=== PATIENT | female | born 1980 | race Caucasian/White ===

== ENCOUNTER 2025-09-04 09:56 | Day surgery (SDC) | payer BC, SELFPAY ==
[2025-09-04 10:20] VITALS: BMI 30.7
[2025-09-04 10:46] VITALS: BP 130/87; PULSE 96; RESP 20; O2SAT 98
--- NOTE | 2025-09-04 15:20 | [facility].PROCNOTE ---
[facility] Procedure Note Date: 09/04/25 Time: 09:00 Procedure Note:: Procedure: Upright tilt table test Requiring physician: Radha Acuna Indication: Dizziness, near syncope Pretest vital signs: Blood pressure 117/80, heart rate 77, 99% on room air Procedure summary: Patient was prepared per protocol. She was then tilted into the upright position at 70 degrees for a total of 30 minutes. Minimum heart rate noted was 73 bpm, maximum heart rate wa 95 bpm. Oxygen saturation ranged from 97% to 100%. Systolic blood pressure ranged from 112-126. EKG rhythm strips showed sinus rhythm. Patient had symptoms of finger numbness, burning and pain on left shoulder, right knee and lower back pain, chest pain and left breast pain. Complications: None
== END 2025-09-04 12:10 | disposition home or self-care (01) ==
LOC: RT 09:57
PROVIDERS: PCP Internal Medicine Geriatric Medicine; Visit Provider Emergency Medicine
DX: R42 Dizziness and giddiness (principal); R55 Syncope and collapse; R07.9 Chest pain, unspecified; R06.02 Shortness of breath; R20.0 Anesthesia of skin; M25.512 Pain in left shoulder; M25.561 Pain in right knee; M54.50 Low back pain, unspecified; N64.4 Mastodynia
CPT/HCPCS: 93660